=== PATIENT | female | born 1990 | race Asian ===

== ENCOUNTER 2022-11-12 05:44 | Inpatient (IN) | payer OTHER ==
[2022-11-11 10:24] LABS: Hemoglobin 10.8 g/dL (12.0-15.5); Platelet Count 280 10x3/uL (150-450)
[2022-11-11 10:52] LABS: HBSAg Index 0.12 S/CO (0-0.99); Hep B Surf Ag Non-Reactive S/CO (NonReactive)
[2022-11-11 10:53] LABS: Syphilis Antibody Nonreactive (Nonreactive); Syphilis Antibody Index 0.05 S/CO (<1.00 Non-Reactive)
[2022-11-11 10:57] LABS: SARS-CoV-2 NAA Rapid Test Not Detected (NotDetected)
[2022-11-12] MEDS ORDERED: Promethazine HCl 25 MG/ML VIAL IM PRN ×3 (06:10→11:29)
[2022-11-12] MEDS ORDERED: Misoprostol 200 MCG TAB PR PRN ×2 (06:10→11:29)
[2022-11-12] MEDS ORDERED: NS w/ Oxytocin 30 units 500 ML IV SCH ×2 (06:10→11:29)
[2022-11-12] MEDS ORDERED: Carboprost 250 MCG/ML AMP IM PRN (06:10)
[2022-11-12] MEDS ORDERED: hydrALAZINE 20 MG/ML VIAL SLOW IVP PRN ×2 (06:10→11:29)
[2022-11-12] MEDS ORDERED: Bicitra 30 ML UDCUP PO PRN (06:10)
[2022-11-12] MEDS ORDERED: Diphenoxylate HCl/Atropine Tablet PO PRN ×2 (06:10)
[2022-11-12] MEDS ORDERED: Ondansetron PF 4 MG/2 ML Vial IVP PRN ×3 (06:10→11:29)
[2022-11-12] MEDS ORDERED: CEFAZOLIN 2 GM in Sodium Chloride 0.9% 100 ML IVPB SCH (06:10)
[2022-11-12] MEDS ORDERED: Famotidine/PF 20 mg/2ml Vial SLOW IVP PRN (06:10)
[2022-11-12] MEDS ORDERED: Lactated Ringer's 1,000 ML IV SCH (06:10)
[2022-11-12 06:36] VITALS: BMI 28.5
[2022-11-12] MEDS ORDERED: Naloxone HCl 0.4 mg/ml Vial IVP PRN ×2 (06:55)
[2022-11-12] MEDS ORDERED: Meperidine HCl/PF 25 MG/ML VIAL SLOW IVP PRN (06:55)
[2022-11-12] MEDS ORDERED: diphenhydrAMINE 50 MG/ML VIAL IVP PRN (06:55)
[2022-11-12] MEDS ORDERED: Ondansetron HCl/PF 4 MG/2 ML Vial IVP PRN (06:55)
[2022-11-12] MEDS ORDERED: Naloxone HCl 0.4 mg/ml Vial IV PRN (06:55)
[2022-11-12] MEDS ORDERED: Fentanyl 100 MCG/2 ML VIAL SLOW IVP PRN (06:55)
[2022-11-12] MEDS ORDERED: Promethazine HCl 25 MG SUPP PR PRN (06:55)
[2022-11-12] MEDS ORDERED: Moisturizing Cream (Eucerin) 113 GM JAR TOP PRN (06:55)
[2022-11-12] MEDS ORDERED: Communication Order-Pharmacy FS SCH (07:00)
[2022-11-12] MEDS ORDERED: Morphine PF 10 MG/10 ML VIAL ONE (07:05)
[2022-11-12] MEDS ORDERED: ePHEDrine Sulfate 50 MG/10 ML VIAL ONE (07:05)
[2022-11-12] MEDS ORDERED: Ondansetron PF 4 MG/2 ML Vial ONE (07:05)
[2022-11-12] MEDS ORDERED: Phenylephrine 40 MG/NS 250 ML 250 ML ONE (07:06)
[2022-11-12] MEDS ORDERED: Oxytocin 10 UNITS/ML VIAL ONE (07:06)
[2022-11-12] MEDS ORDERED: Ketorolac Tromethamine 30 MG/ML VIAL ONE (07:06)
[2022-11-12] MEDS ORDERED: Methylergonovine 0.2 MG/ML VIAL ONE (08:01)
[2022-11-12] MEDS ORDERED: Misoprostol 200 MCG TAB PO SCH ×2 (09:15→10:15)
[2022-11-12] MEDS ORDERED: Acetaminophen 325 MG TAB PO PRN (09:17)
[2022-11-12] MEDS ORDERED: Misoprostol 200 MCG TAB ONE (09:20)
[2022-11-12 11:24] LABS: Hemoglobin 9.2 g/dL (12.0-15.5); Mean Corpuscular HGB CONC 32.7 g/dL (32.0-36.0); Mean Corpuscular Hemoglobin 29.5 pg (27.0-33.0); Mean Corpuscular Volume 90.1 fl (81.6-98.3); Mean Platelet Volume 9.2 fl (7.4-10.4); Platelet Count 234 10x3/uL (150-450); RBC Distribution Width 12.7 % (11.5-14.5); Red Blood Cell (RBC) Count 3.12 10x6/uL (3.90-5.03); White Blood Cell (WBC) Count 19.2 10x3/uL (3.5-10.5)
[2022-11-12] MEDS ORDERED: Simethicone Chewable 80 MG TAB PO PRN (11:29)
[2022-11-12] MEDS ORDERED: Lanolin Ointment 7 GM TUBE TOP PRN (11:29)
[2022-11-12] MEDS ORDERED: Boostrix 0.5 ML (Tdap) VIAL (>/=7 yrs of age) IM ONE (11:29)
[2022-11-12] MEDS ORDERED: Prenatal Vitamin 1 TAB PO SCH (11:45)
[2022-11-12] MEDS ORDERED: Ferrous Sulfate 325 MG TAB PO SCH (11:45)
[2022-11-12] MEDS ORDERED: Docusate 100 MG CAP PO SCH (11:45)
[2022-11-12] MEDS ORDERED: Ketorolac Tromethamine 30 MG/ML VIAL IVP SCH (14:30)
[2022-11-12] MEDS: Ketorolac Tromethamine 30 MG/ML VIAL IVP PRN (18:52)
[2022-11-12] MEDS ORDERED: HYDROcodone/Acetaminophen 5/325 mg Tablet PO PRN ×2 (19:00)
[2022-11-12] MEDS: Ferrous Sulfate 325 MG TAB PO SCH (21:28)
[2022-11-12] MEDS: Docusate 100 MG CAP PO SCH (21:28)
[2022-11-13] MEDS: Ketorolac Tromethamine 30 MG/ML VIAL IVP PRN (01:45)
[2022-11-13 04:57] LABS: Hemoglobin 7.1 g/dL (12.0-15.5); Mean Corpuscular Hemoglobin 28.7 pg (27.0-33.0); Mean Corpuscular Volume 89.9 fl (81.6-98.3); Mean Platelet Volume 9.5 fl (7.4-10.4); Platelet Count 201 10x3/uL (150-450); RBC Distribution Width 12.8 % (11.5-14.5); Red Blood Cell (RBC) Count 2.47 10x6/uL (3.90-5.03); White Blood Cell (WBC) Count 8.2 10x3/uL (3.5-10.5)
[2022-11-13] MEDS: Prenatal Vitamin 1 TAB PO SCH (08:45)
[2022-11-13] MEDS: Docusate 100 MG CAP PO SCH ×2 (08:45→21:25)
[2022-11-13] MEDS: Ferrous Sulfate 325 MG TAB PO SCH ×2 (08:45→21:24)
[2022-11-13] MEDS: HYDROcodone/Acetaminophen 5/325 mg Tablet PO PRN ×2 (08:47→13:50)
[2022-11-13] MEDS: Ibuprofen 800 MG TAB PO SCH ×2 (13:50→21:25)
[2022-11-14] MEDS: Ibuprofen 800 MG TAB PO SCH ×3 (04:58→21:22)
[2022-11-14] MEDS: Ferrous Sulfate 325 MG TAB PO SCH ×2 (08:00→21:21)
[2022-11-14] MEDS: HYDROcodone/Acetaminophen 5/325 mg Tablet PO PRN (08:00)
[2022-11-14] MEDS: Docusate 100 MG CAP PO SCH ×2 (08:00→21:21)
[2022-11-14 10:56] LABS: Hemoglobin 7.5 g/dL (12.0-15.5)
[2022-11-14] MEDS: Prenatal Vitamin 1 TAB PO SCH (13:40)
[2022-11-15] MEDS: Ibuprofen 800 MG TAB PO SCH ×5 (05:12→07:57)
[2022-11-15] MEDS: Ferrous Sulfate 325 MG TAB PO SCH (07:54)
[2022-11-15] MEDS: Docusate 100 MG CAP PO SCH (07:54)
[2022-11-15] MEDS: Prenatal Vitamin 1 TAB PO SCH (07:54)
[2022-11-15 08:23] VITALS: BP 112/64; TEMP 98.3
== END 2022-11-15 14:00 | disposition home or self-care (01) | DRG 787 ==
LOC: CSHLD 05:44 → CSHPED 11:55
PROVIDERS: ADMIT Obstetrics & Gynecology; ATTEND Obstetrics & Gynecology
PROC: 10D00Z1 Extraction of Products of Conception, Low, Open Approach (ICD-10-PCS; principal; 2022-11-12)
DX: O34.211 Maternal care for low transverse scar from previous cesarean delivery (principal); D62 Acute posthemorrhagic anemia; Z3A.39 39 weeks gestation of pregnancy; Z37.0 Single live birth; O43.213 Placenta accreta, third trimester; O62.2 Other uterine inertia; Z20.822 Contact with and (suspected) exposure to COVID-19; O69.2XX0 Labor and delivery complicated by other cord entanglement, with compression, not applicable or unspecified; O99.03 Anemia complicating the puerperium; Z79.899 Other long term (current) drug therapy
CPT/HCPCS: 36415; 51702; 85014; 85018; 85027; 85049; 86780; 86850; 86900; 86901; 87340; J1885; J2210; J2274; J2405; J2590; J7120; S0028; U0002